=== PATIENT | male | born 1960 | race Caucasian/White ===

== ENCOUNTER → 2016-06-30 | Outpatient (CLI) | payer MEDICARE, MEDICAID ==
[~2016-06-30] MED LIST: ATORVASTATIN CA40 MG PO; CHLORTABS4 MG PO; GABAPENTIN 600600 MG PO; GABAPENTIN800 MG PO; HUMALOG KW100 UNIT/1 SQ; HUMALOG MIX75/253 ML SC; INSULIN GL100 UNITS/ SC; INSULIN GL100 UNITS1 SC; KEFLEX500 M1 PO; LISINOPRIL20 MG PO; METFORMIN HCL1000 MG PO; REGLAN10 M2 PO; SERTRALINE 50MG50 MG PO; ZOFRAN ODT4 MG PO
[2016-06-30 10:38] LABS: HEMOGLOBIN 16.1 g/dL (14.1-18.0); LYMPH # 2.1 K/mm3 (0.7-4.5); LYMPH % 23.4 % (10-50)
[2016-06-30 11:41] LABS: BUN 20 mg/dL (7-18)
[2016-06-30 11:47] LABS: GFR (ESTIMATED) 69 ML/MIN (>60)
== END ==
LOC: LAB 10:21
PROVIDERS: Surgery
DX: Z01.810 Encounter for preprocedural cardiovascular examination (principal); Z01.812 Encounter for preprocedural laboratory examination

== ENCOUNTER 2016-07-08 14:41 | Emergency (ER) | payer MEDICARE, MEDICAID ==
[~2016-07-08] VITALS: Ht 180.3 cm; Wt 108.9 kg
[~2016-07-08 14:41] MED LIST changes: -CHLORTABS4 MG PO; -GABAPENTIN800 MG PO; -HUMALOG MIX75/253 ML SC; -INSULIN GL100 UNITS/ SC; -ZOFRAN ODT4 MG PO
--- NOTE | 2016-07-08 14:53 | Emergency Room Report ---
History of Present Illness Time Seen by [id number] Presenting Problem in Triage Pt arrived:Ambulance Stretcher Presenting Problem:PULLED OVER ON THE SIDE OF THE RODE BECAUSE HE BECAME SWEATY AND NAUSEATED. PAIN IN ABDOMEN AND COLD SWEATS. STATES HE IS JUST LETHARGIC, WEAK, AND LIGHTHEADED. Onset of symptoms date/time:/ or onset unknown for:MEDICAL HX UNKNOWN Treatment Prior to Arrival: IV LINE STARTED, BLOOD DRAWN FURNACE COMBUSTION TESTER Provided by: ENVIRONMENTAL CONTROL ADMINISTRATOR Sepsis Risk Assessment: Temp: B/P: 187/89 MAP: 121 Pulse: 70 Resp: 18 Recent fever? N Clinical Suspician of Infection? N Mental Status: 1 - Regular (Normal Baseline) Sepsis Risk:Low Sepsis Risk Have you (or family members/close friends) recently traveled outside the [place]? N If Yes, where/when: Have you had exposure to infectious disease within the past month? N TB? Other? Specify: Source patient, RN notes reviewed, EMS, old records Exam Limitations no limitations Comment This is a 56-year-old male with a past medical history significant for hypertension, hyperlipidemia, diabetes mellitus, known gallbladder disease who presents to the emergency department for evaluation after sudden onset nausea and vomiting while driving just prior to arrival. Patient states that he has not had any chest pain, shortness of air and no recent illnesses including no fevers , vomiting, diarrhea. No known sick contacts. He was driving when he suddenly became very sweaty, nauseous and threw up. He states that he has known gallbladder disease and was scheduled for cholecystectomy, but became scared of the surgery so did not follow through. Just prior to his episode of diaphoresis and vomiting he ate two fillet fish sandwiches at [facility]. EMS reports normal sinus rhythm on the monitor and fingerstick 183. Patient case to feel nauseous, denies any chest pain, abdominal pain or back pain ALLERGIES Coded Allergies: diphenhydramine (From BENADRYL) (GIVES HEADACHE 11/03/15) hydroxyzine (From VISTARIL) (MAKES SHAKE 11/03/15) Home Medications Reported Medications Lisinopril 20 MG PO DAILY #30 Atorvastatin Calcium 40 MG PO QHS #30 METFORMIN HCL (Metformin 1000MG) 1,000 MG PO BID #60 INSULIN NPL/INSULIN LISPRO (Humalog Mix 75-25 Kwikpen) 6 UNITS SC BID 30 Days INSULIN GLARGINE (Lantus 3ML Solostar Pen) 50 UNITS SC DAILY Sertraline Hcl (Sertraline 50MG) 50 MG PO DAILY Chlorpheniramine Maleate (Chlortabs) 4 MG PO DAILY Gabapentin (Gabapentin 800MG) 800 MG PO QID History Medical History General CAD? No Angina: No MO: No Hypertension? Yes Hyperlipidemia? Yes CHF? No DVT? No PE? No COPD? No Asthma? No Anemia? No GERD? No Gastric ulcers? No GI Bleed? No Hernia? No Thyroid Problems? No Hypothyroidism? No CVA? No Seizures? No Diabetes? Yes Insulin Dependent: Yes Insulin Pump: No Home FSBS? Yes Renal Insuffiency? No End Stage Renal Disease? No UTI? No Stones? No BPH? No GB Disease: No Nephritic Syndrome? No Asplenia? No Hepatitis? No Sickle Cell Disease? No Arthritis? No Migraines? No Cataracts? No Glaucoma? No MRSA? No HIV? No TB? No Anxiety? No Depression? Yes Cancer? No More? No Immunization Hx Ped.Immunizations UTD Yes DT/Tetanus 1-4 Years Ago Surgical Hx Previous Surgery?N Social History Smoking Hx Smoker: Never Smoker Tobacco: No Are you/the child exposed to second-hand smoke: No Alcohol Alcohol: No Review of Systems All Other Systems Reviewed and Negative Physical Exam Vital Signs Vital Signs Date Time Temp Pulse Resp B/P Pulse O2 O2 Flow FiO2 Ox Delivery Rate 07/08 1444 70 18 187/89 98 General Appearance normal appearance, WD/WN Eye Exam - bilateral eye normal exam, bilateral eye PERRL, bilateral eye EOMI Neck normal inspection, non-tender, supple, full range of motion Respiratory Status Yes: chest symmetrical, non tender chest. No: respiratory distress. Lung Sounds bilateral: normal breath sounds, lungs clear. Cardiovascular normal exam, regular rate/rhythm, no peripheral edema, no gallop, no JVD, no murmur, no rub, normal peripheral pulses Peripheral Pulses Pulses normal Yes Gastrointestinal normal bowel sounds, normal exam, non tender Back normal inspection, no CVA tenderness, no vertebral tenderness Neurologic alert, no motor/sensory deficits, oriented x 3 Skin intact, normal color, warm/dry Medical Decision Making LABS/Meds/Orders Pt receiving controlled substance in ED? No Results/Orders Laboratory Tests 07/08/16 1440: Sodium 142, Potassium 3.8, Chloride 106, Carbon Dioxide 29, BUN 23 H, Creatinine 1.0, Estimated Creat Clear 124, Estimated GFR (MDRD) 77, Glucose 176 H, Calcium 9.1, Total Bilirubin 0.3, AST 17, ALT 32, Alkaline Phosphatase 69, Troponin I < 0.02, Total Protein 7.7, Albumin 3.9, Globulin 3.8 H, Albumin/ Globulin Ratio 1.0 L, Lipase 151, WBC 10.4, RBC 5.15, Hgb 15.5, Hct 46.3, MCV 89.9, RDW 14.1, Plt Count 221, MPV 8.7, Gran % 71.0, Gran # 7.4, Lymphocytes % 21.8, Monocytes % 4.8, Eosinophils % 1.6, Basophils % 0.7, Lymphocytes # 2.3, Monocytes # 0.5, Eosinophils # 0.2, Basophils # 0.1, PUBS MCHC 33.5, MCH 30.1 Current Medication Orders Sig/Jordan Start time Last Medication Dose Route Stop Time Status Admin Ondansetron HCl 4 MG ONCE ONE 07/08 1500 DC 07/08 IV 07/08 1501 1453 Sodium Chloride 10 ML PRN PRN 07/08 1500 AC IV 07/09 1449 Ondansetron HCl 0 .STK-MED ONE 07/08 1451 DC .ROUTE Orders Procedure Date/time Status IV SALINE LOCK 07/08 1449 Active CHEST-PORTABLE 07/08 1445 Active URINALYSIS/COMPLETE 07/08 1445 Active TROPONIN I 07/08 1445 Complete LIPASE 07/08 1445 Complete CBC WITH AUTO DIFF 07/08 1445 Complete CHEM 12 PROFILE 07/08 1445 Complete CM/EKG CM/EKG EKG rate, NSR, rhythm, no evid. of ischemic chgs, normal IA, Slightly prolonged QTC of 466 ms XRAY/CT/US XRAY/CT/US XRAY chest Xray Results normal/NAD (per my read) Departure Departure Disposition DC Home or Self Care(routine) Clinical Impression Primary Impression: Nausea & vomiting Qualifiers: Vomiting type: unspecified Vomiting Intractability: non-intractable Qualified Code: R11.2 - Nausea with vomiting, unspecified Condition STABLE Referrals Gino Rose (Family) Additional Instructions Use Zofran if needed for nausea. Follow-up with primary care provider tomorrow for reevaluation. Return to the emergency department if you develop any recurrent symptoms, chest pain, shortness of air, abdominal pain or acute onset back pain. Prescriptions Current Visit Scripts Ondansetron (Zofran 4MG Odt) 4 MG PO Q6HP PRN NAUSEA AND VOMITING #20 TAB ED Critical Care Critical Care No Comments Patient arrives with sudden onset diaphoresis, nausea, vomiting shortly after eating to fried fish sandwiches at [employer]. He denies any chest pain, abdominal pain. He is feeling better and tolerating by mouth Zofran and fluids. Electrocardiogram with no signs of acute ischemia. Initial troponin is negative. He later find out that his friend who is eating with him also became acutely ill with nausea, vomiting and diaphoresis. This constellation of symptoms makes me most suspicious for food borne illness rather than ACS, acute cholecystitis, UTI , aortic dissection. Patient remains pain-free while in the emergency department. We'll discharge home with prescription for Zofran and have him follow up with primary care provider tomorrow for reevaluation. at [phone]
[2016-07-08] MEDS ORDERED: HUMALOG MIX75/253 ML SC (14:54)
[2016-07-08] MEDS ORDERED: INSULIN GL100 UNITS/ SC (14:55)
[2016-07-08] MEDS ORDERED: SERTRALINE 50MG50 MG PO (14:56)
[2016-07-08 14:57] LABS: HEMOGLOBIN 15.5 g/dL (14.1-18.0); LYMPH # 2.3 K/mm3 (0.7-4.5); LYMPH % 21.8 % (10-50)
[2016-07-08] MEDS ORDERED: CHLORTABS4 MG PO (14:57)
[2016-07-08] MEDS ORDERED: GABAPENTIN800 MG PO (14:58)
[2016-07-08 15:08] LABS: BUN 23 mg/dL (7-18); GFR (ESTIMATED) 77 ML/MIN (>60)
[2016-07-08] MEDS ORDERED: ZOFRAN ODT4 MG PO (15:47)
[2016-07-08 15:59] VITALS: BP 164/90
--- NOTE | 2016-07-08 16:14 | RADIOLOGY REPORT PS360 ---
CHEST-PORTABLE HISTORY: N/V ORDERING PHYSICIAN: Darien Bryson MD PATIENT AGE: 56 years COMPARISON: None available FINDINGS: The cardiomediastinal silhouette and pulmonary vascularity are within normal limits. The lungs are clear without infiltrates, suspicious nodules, or pleural effusions. No acute bony abnormalities. There are 2 faint linear opacities overlying the left upper chest may be due to artifact versus foreign body. Additional opacity is noted of the left chest carbone bilaterally IMPRESSION: No acute finding
== END 2016-07-08 16:00 | disposition home or self-care (01) ==
LOC: ER 14:41
PROVIDERS: Emergency Medicine
DX: R11.2 Nausea with vomiting, unspecified (principal); I10 Essential (primary) hypertension; E11.9 Type 2 diabetes mellitus without complications; Z79.4 Long term (current) use of insulin
CPT/HCPCS: J2405

== ENCOUNTER 2017-05-10 08:57 | Emergency (ER) | payer MEDICARE, MEDICAID ==
[~2017-05-10] VITALS: Ht 180.3 cm; Wt 90.7 kg
[~2017-05-10 08:57] MED LIST changes: +CHLORTABS4 MG PO; +GABAPENTIN800 MG PO; +HUMALOG MIX75/253 ML SC; +INSULIN GL100 UNITS/ SC; +ZOFRAN ODT4 MG PO
--- OUTSIDE RECORDS SUMMARY | 2017-05-10 09:05 | External Medical Summary Rpt ---
Author Author [facility] Organization [facility] Address Unknown Phone Unavailable Care Team Providers Care Outside Sales Account Representative Name Role Phone CAITIE, (REF) PCP [phone] Encounter [facility] [id number] Date(s): 12/25/16 - 12/25/16 [facility] [address] [place] [address]- Discharge Diagnosis: Nausea and vomiting Discharge Diagnosis: Shortness of breath Discharge Disposition: OP Self Care or Home Attending Physician: BLAIR PERRY DO Admitting Physician: BLAIR PERRY DO Referring Physician: SELF, REFERRED (REF), -UNK Reason for Visit N/V/SWEATING ,DIABETIC,SHAKING Vital Signs Most recent 1 2 3 to oldest [Reference Range]: Temperature Oral Source (12/25/16 1:15 PM) Temperature Fahrenheit Mode (12/25/16 1:15 PM) Temperature, 97.5 Deg F Fahrenheit (12/25/16 1:15 PM) [96.8-99.7 Deg F] Clinical 36.4 Deg C Temperature, (12/25/16 1:15 PM) C Peripheral 75 bpm 83 bpm Pulse Rate (12/25/16 5:34 PM) (12/25/16 1:15 PM) [60-100 bpm] Heart Rate 78 bpm Monitored (12/25/16 1:30 PM) [60-100 bpm] Respiratory 18 Breaths/Min 20 Breaths/Min 28 Breaths/Min Rate [14-20 (12/25/16 5:34 PM) (12/25/16 1:30 PM) *HI* Breaths/Min] (12/25/16 1:15 PM) Blood Arm, left upper Pressure (12/25/16 1:15 PM) Location Blood Non-Invasive BP Pressure Device (12/25/16 Source 1:15 PM) Blood 148/61 mmHg 156/90 mmHg 156/90 mmHg Pressure *HI* *HI* *HI* [90-140/60-9 (12/25/16 5:34 PM) (12/25/16 1:30 PM) (12/25/16 1:15 PM) 0 mmHg] Mean 112 mmHg Arterial (12/25/16 1:30 PM) Pressure (MAP) Mean 106 Arterial (12/25/16 1:30 PM) Pressure (MAP)-BMDI Oxygen 99 % 100 % 100 % Saturation (12/25/16 5:34 PM) (12/25/16 1:30 PM) (12/25/16 1:15 PM) [94-100 %] Oxygen Room air Room air Room air Therapy Mode (12/25/16 5:34 PM) (12/25/16 1:30 PM) (12/25/16 1:15 PM) Height Stated Source (12/25/16 1:15 PM) Height Entry [place] Format (12/25/16 1:15 PM) Height/Lengt 5 ft h, POLISH (12/25/16 1:15 PM) (ft) Height/Lengt 11 Inch h POLISH (12/25/16 1:15 PM) CLINICALHEIG 180.34 cm HT (12/25/16 1:15 PM) Weight Standing scale Source, ED (12/25/16 1:15 PM) Weight Entry [place] Format (12/25/16 1:15 PM) Weight 136 lb [place] lb (12/25/16 1:15 PM) CLINICALWEIG 61.82 kg HT (12/25/16 1:15 PM) Body Surface 1.79 m2 Area (BSA) (12/25/16 1:15 PM) Body Mass 19 kg/m2 Index (BMI) (12/25/16 1:15 PM) [19.0-24.0 kg/m2] [place] Body 74.31 kg Weight (12/25/16 1:15 PM) Problem List Condition Effective Status Health Informant Dates Status Diabetes(Con Active firmed) Hypercholest Active eremia(Confi rmed) HTN Active (hypertensio n)(Confirmed ) [place] Active (myocardial infarction)( Confirmed) Allergies, Adverse Reactions, Alerts Substance Reaction Severity Status Benadryl headache Active Vistaril Shakiness Active Medications atorvastatin (atorvastatin 40 mg oral tablet) Refills: 0 gabapentin (gabapentin 800 mg oral tablet) 1 Tab, Oral, Three Times A Day, Refills: 0 insulin glargine (Lantus Solostar Pen 100 units/mL subcutaneous solution)10 Units, SubCutaneous , One Time Order, Refills: 0 insulin lispro-insulin lispro protamine (HumaLOG Mix 75/25 KwikPen subcutaneous suspension) Refills: 0 Non Formulary (LISINOPRIL 20 MG TABLET) Refills: 0 Non Formulary (METFORMIN HCL 1,000 MG TABLET) Refills: 0 ondansetron (Zofran 4 mg oral tablet) See Instructions, 1 Tab Oral Q6-8H prn N/V, Refills: 0Ordering provider: NICKOLAS YOUNG PA-GELACIO sertraline (sertraline 50 mg oral tablet) Refills: 0 Results GENERAL CHEMISTRY Most recent 1 2 to oldest [Reference Range]: Sodium Level 137 mmol/L [136-144 (12/25/16 1:47 PM) mmol/L] Potassium 4.5 mmol/L Level (12/25/16 1:47 PM) [3.7-5.0 mmol/L] Chloride 104 mmol/L Level (12/25/16 1:47 PM) [98-107 mmol/L] Carbon 26.0 mMole/Liter Dioxide (12/25/16 1:47 PM) Level [24.0-33.0 mMole/Liter] Anion Gap 7.0 [2.0-11.0] (12/25/16 1:47 PM) Glucose 239 mg/dL Level *HI* [70-110 (12/25/16 1:47 PM) mg/dL] Blood Urea 23 mg/dL Nitrogen *HI* [6-20 mg/dL] (12/25/16 1:47 PM) Creatinine 1.03 mg/dL Level (12/25/16 1:47 PM) [0.64-1.27 mg/dL] eGFR 90 mL/min/1.73m2 [>=60 (12/25/16 1:47 PM) mL/min/1.73m 2] eGFR 74 mL/min/1.73m2 NonAfrican (12/25/16 1:47 PM) [>=60 mL/min/1.73m 2] Bun/Creatini 22 ne *NA* (12/25/16 1:47 PM) Calcium 9.5 mg/dL Level (12/25/16 1:47 PM) [8.9-10.3 mg/dL] Protein 7.7 Gram/dL Total *HI* [5.9-7.5 (12/25/16 1:47 PM) Gram/dL] Albumin 4.3 Gram/dL Level (12/25/16 1:47 PM) [3.6-4.7 Gram/dL] A/G Ratio 1.3 [1.0-1.8] (12/25/16 1:47 PM) Bilirubin 0.6 mg/dL Total (12/25/16 1:47 PM) [0.4-1.3 mg/dL] Alk Phos 76 Units/Liter [34-106 (12/25/16 1:47 PM) Units/Liter] AST [12-38 21 Units/Liter Units/Liter] (12/25/16 1:47 PM) ALT [8-60 27 Units/Liter Units/Liter] (12/25/16 1:47 PM) Glucose POC2 207 mg/dL [70-110 *HI* mg/dL] (12/25/16 1:25 PM) CARDIAC SPECIFIC MARKERS Most recent 1 2 to oldest [Reference Range]: CK [25-257 82 Units/Liter 97 Units/Liter Units/Liter] (12/25/16 4:25 PM) (12/25/16 1:47 PM) Troponin I <0.02 ng/mL <0.02 ng/mL [0.00-0.03 (12/25/16 4:25 PM) (12/25/16 1:47 PM) ng/mL] CK MB 3.8 ng/mL 4.0 ng/mL [0.3-4.0 (12/25/16 4:25 PM) (12/25/16 1:47 PM) ng/mL] MBI [0.0-2.5 4.6 % 4.1 % %] *HI* *HI* (12/25/16 4:25 PM) (12/25/16 1:47 PM) HEMATOLOGY Most recent 1 2 to oldest [Reference Range]: WBC 10.2 10x3/mm3 [4.1-10.8 (12/25/16 1:47 PM) 10x3/mm3] RBC 4.75 Million/mm3 [4.37-5.74 (12/25/16 1:47 PM) Million/mm3] Hgb 14.6 Gram/dL [13.7-17.5 (12/25/16 1:47 PM) Gram/dL] Hct 42.5 % [40.1-51.0 (12/25/16 1:47 PM) %] MCV 89.4 fL [79.0-92.2 (12/25/16 1:47 PM) fL] MCH 30.7 pg [25.6-32.2 (12/25/16 1:47 PM) pg] MCHC 34.3 Gram/dL [32.3-36.5 (12/25/16 1:47 PM) Gram/dL] Platelet 203 10x3/mm3 Count (12/25/16 1:47 PM) [140-370 10x3/mm3] MPV 8.7 fL [8.7-12.0 (12/25/16 1:47 PM) fL] RDW 13.2 % [11.7-15.2 (12/25/16 1:47 PM) %] Neut % 68.6 % [34.0-69.5 (12/25/16 1:47 PM) %] Neut # 7.0 x10(3)/uL [1.7-6.0 *HI* x10(3)/uL] (12/25/16 1:47 PM) Lymph % 22.1 % [20.0-53.0 (12/25/16 1:47 PM) %] Lymph # 2.3 x10(3)/uL [0.8-3.2 (12/25/16 1:47 PM) x10(3)/uL] [place] % 6.6 % [5.0-12.5 %] (12/25/16 1:47 PM) [place] # 0.7 x10(3)/uL [0.2-1.4 (12/25/16 1:47 PM) x10(3)/uL] Eos % 1.9 % [0.7-6.0 %] (12/25/16 1:47 PM) Eos # 0.2 x10(3)/uL [0.0-0.6 (12/25/16 1:47 PM) x10(3)/uL] Baso % 0.8 % [0.0-3.0 %] (12/25/16 1:47 PM) Baso # 0.1 x10(3)/uL [0.0-0.3 (12/25/16 1:47 PM) x10(3)/uL] COAGULATION Most recent 1 2 to oldest [Reference Range]: D Dimer 0.26 mg/L FEU Quant (12/25/16 1:47 PM) [0.19-0.50 mg/L FEU] URINALYSIS Most recent 1 2 to oldest [Reference Range]: Urine Type. U CleanCatch *NA* (12/25/16 4:29 PM) Urine Color Yellow *NA* (12/25/16 4:29 PM) Urine Clear Appearance (12/25/16 4:29 PM) Urine 1.010 Specific *NA* [place] (12/25/16 4:29 PM) [1.003-1.030 ] Urine pH 6.0 Dipstick (12/25/16 4:29 PM) [5.0-8.0] Urine Negative Leukocyte (12/25/16 4:29 PM) Esterase [Negative] Urine Negative Nitrite (12/25/16 4:29 PM) [Negative] Urine 1+ Protein *ABN* Dipstick (12/25/16 4:29 PM) [Negative] Urine 3+ mg/dL Glucose *ABN* Dipstick (12/25/16 4:29 PM) [Negative mg/dL] Urine Negative Ketones (12/25/16 4:29 PM) Dipstick [Negative] Urine 1.0 EU/dL Urobilinogen (12/25/16 4:29 PM) Dipstick [0.1-1.0 EU/dL] Urine Negative Bilirubin (12/25/16 4:29 PM) Dipstick [Negative] Urine Blood Negative Dipstick (12/25/16 4:29 PM) [Negative] Ur RBC 0-2 /HPF (12/25/16 4:29 PM) Ur WBC 0-2 /HPF (12/25/16 4:29 PM) Ur Bacteria None Seen (12/25/16 4:29 PM) Ur 0-2 /HPF Epithelial (12/25/16 4:29 PM) Cells Immunizations No data available for this section Procedures Procedure Date Related Body Site Diagnosis None Social History Social History Response Type Smoking Status Never smoker; Tobacco Use Within Last Twelve Months No Assessment and Plan No data available for this section Hospital Discharge Instructions Patient EducationNausea and Vomiting, Nxad-mr-Ojuz Shortness of Breath, Wfre-ad-Cpjs
--- OUTSIDE RECORDS SUMMARY | 2017-05-10 09:05 | External Medical Summary Rpt | CCD ---
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
--- OUTSIDE RECORDS SUMMARY | 2017-05-10 09:05 | External Medical Summary Rpt | CCD ---
Author Author , MELVA FRYE Address Unknown Phone [email or web address] Purpose Continuity of Care Document - through [...]
--- OUTSIDE RECORDS SUMMARY | 2017-05-10 09:05 | External Medical Summary Rpt ---
Author Author [facility] Organization [facility] Address Unknown Phone Unavailable Care Team Providers Care Miniature Set Designer Name Role Phone CAITIE, (REF) PCP [phone] Encounter [facility] [id number] Date(s): 12/25/16 - 12/25/[address] [facility] [address] [place] [address]- Discharge Diagnosis: Nausea and vomiting Discharge Diagnosis: [...] Stated Source (12/25/16 1:15 PM) Height Entry [place] Format (12/25/16 1:15 PM) Height/Lengt 5 ft h, [place] (12/25/16 1:15 PM) (ft) Height/Lengt 11 Inch h [place] (12/25/16 1:15 PM) CLINICALHEIG 180.34 cm HT (12/25/16 1:15 PM) Weight Standing scale Source, ED (12/25/16 1:15 PM) Weight Entry [place] Format (12/25/16 1:15 PM) Weight 136 lb Italian lb (12/25/16 1:15 PM) CLINICALWEIG 61.82 kg HT (12/25/16 1:15 PM) Body Surface 1.79 m2 Area (BSA) (12/25/16 1:15 PM) Body Mass 19 kg/m2 Index (BMI) (12/25/16 1:15 PM) [19.0-24.0 kg/m2] [place] Body 74.31 kg Weight (12/25/16 1:15 PM) Problem List Condition Effective Status Health Informant Dates Status Diabetes(Con Active firmed) Hypercholest Active eremia(Confi rmed) HTN Active (hypertensio n)(Confirmed ) [place] Active (myocardial infarction)( Confirmed) Allergies, Adverse Reactions, [...] 2.3 x10(3)/uL [0.8-3.2 (12/25/16 1:47 PM) x10(3)/uL] [place] % 6.6 % [5.0-12.5 %] (12/25/16 1:47 PM) [place] # 0.7 x10(3)/uL [0.2-1.4 (12/25/16 1:47 PM) [...] (12/25/16 4:29 PM) Urine 1.010 Specific *NA* [place] (12/25/16 4:29 PM) [1.003-1.030 ] Urine pH [...] Hospital Discharge Instructions Patient EducationNausea and Vomiting, Eobi-sb-Pjbt Shortness of Breath, Cyfi-ny-Oouv
--- OUTSIDE RECORDS SUMMARY | 2017-05-10 09:06 | External Medical Summary Rpt | CCD ---
Author Author [facility] Organization [facility] Address Unknown Phone Unavailable Purpose Continuity of Care Document - through 2016
--- OUTSIDE RECORDS SUMMARY | 2017-05-10 09:06 | External Medical Summary Rpt | CCD ---
Author Author , MELVA FRYE Address Unknown Phone [email or web address] ([email or web address] Immunization Name Date Rout CVX Reac Dose Comm Prov Is Faci e tion ent ider Refu lity Give sed n Infl 09-2 0.5 Hist GSHA No GSHA uenz 9-20 mL oric NE NE a 17 al Quad Info rmat W/Pr ion es - Sour ce Unsp ecif ied PPV2 10-3 Intr 33 999 Hist H137 No H137 3 0-20 amus oric 14 cula al r Info rmat ion - Sour ce Unsp ecif ied
--- OUTSIDE RECORDS SUMMARY | 2017-05-10 09:06 | External Medical Summary Rpt ---
Author Author [employer], [employer] Organization [employer] Address Unknown Phone Unavailable
--- OUTSIDE RECORDS SUMMARY | 2017-05-10 09:06 | External Medical Summary Rpt | CCD ---
Author Author , MELVA FRYE Address Unknown Phone [email or web address] Immunization Name Date Rout CVX Reac Dose [...]
--- NOTE | 2017-05-10 09:45 | [facility]gent [facility] Report ---
History of Present Issue Date/Time Seen by Provider 05/10/17 0944 Visit Reason Pt arrived:Walked Presenting Problem:PT C/O DRAINAGE AND HEAD CONGESTION FEELS LIKE SINUS INFECTION Location if Accident: Onset of symptoms date/time:/ or onset unknown for:MEDICAL HX UNKNOWN Have you (or family members/close friends) recently traveled outside the [place]? N If Yes, where/when: Have you had exposure to infectious disease within the past month? TB? Other? Specify: c/o increase in PND and sneezing x 2-3 days. Worried it might be a sinus infection. Gary pain or fevers. Hasn't taken or tried anything other than typical daily antihistamine. No known sick contacts. Source patient Exam Limitations no limitations ALLERGIES Coded Allergies: diphenhydramine (From BENADRYL) (GIVES HEADACHE 11/03/15) hydroxyzine (From VISTARIL) (MAKES SHAKE 11/03/15) Home Medications Active Scripts Ondansetron (Zofran 4MG Odt) 4 MG PO Q6HP PRN NAUSEA AND VOMITING #20 TAB Prov: 07/08/16 Reported Medications Lisinopril 20 MG PO DAILY #30 Atorvastatin Calcium 40 MG PO QHS #30 METFORMIN HCL (Metformin 1000MG) 1,000 MG PO BID #60 INSULIN NPL/INSULIN LISPRO (Humalog Mix 75-25 Kwikpen) 6 UNITS SC BID 30 Days INSULIN GLARGINE (Lantus 3ML Solostar Pen) 50 UNITS SC DAILY Sertraline Hcl (Sertraline 50MG) 50 MG PO DAILY Chlorpheniramine Maleate (Chlortabs) 4 MG PO DAILY Gabapentin (Gabapentin 800MG) 800 MG PO QID History Medical History General CAD? No Angina: No [place]: No Hypertension? Yes Hyperlipidemia? Yes CHF? No DVT? No PE? No COPD? No Asthma? No Anemia? No GERD? No Gastric ulcers? No GI Bleed? No Hernia? No Thyroid Problems? No Hypothyroidism? No CVA? No Seizures? No Diabetes? Yes Insulin Dependent: Yes Insulin Pump: No Home FSBS? Yes Renal Insuffiency? No UTI? No Stones? No BPH? No GB Disease: No Nephritic Syndrome? No Asplenia? No Hepatitis? No Sickle Cell Disease? No Arthritis? Yes Migraines? No Cataracts? No Glaucoma? No MRSA? No HIV? No TB? No Anxiety? No Depression? Yes Cancer? No More? No Immunization HX DT/Tetanus 1-4 Years Ago Flu Refused Pneumonia Refuses Surgical Hx Previous Surgery?N Family History Family HX Diabetes Yes CAD No Hypertension Yes Hyperlipidemia Yes Cancer No TB No Social History Smoking Hx Smoker: Never Smoker Tobacco: No Alcohol Alcohol: No Review of Systems All Other Systems Reviewed and Negative Constitutional see HPI, denies fever, denies malaise, denies weakness Eyes denies drainage ENT see HPI, nose discharge (thin, clear, minimal). denies: ear pain, ear discharge , nose congestion, throat pain, other (sinus pain, ). Respiratory denies cough Gastrointestinal denies no symptoms reported Musculoskeletal denies joint pain Skin denies rash Psychiatric/Neurological denies headache Physical Exam Vital Signs Vital Signs Date Time Temp Pulse Resp B/P Pulse O2 O2 Flow FiO2 Ox Delivery Rate 05/10 0919 97.8 86 18 149/70 97 General Appearance normal appearance, no apparent distress Ear, Nose, Throat normal ENT inspection (x/ sneezing frequently) Neck non-tender, supple Respiratory Status No: respiratory distress, productive cough, non productive cough. Lung Sounds anterior: lungs clear. posterior: lungs clear. bilateral: lungs clear. Cardiovascular regular rate/rhythm, no peripheral edema, no rub Neurologic alert, oriented x 3 Mental status normal mood/affect Lymphatic no adenopathy Medical Decision Making LABS/Meds/Orders Pt receiving controlled substance in ED? No Departure Departure Time of Disposition 0951 Disposition DC Home or Self Care(routine) Clinical Impression Primary Impression: Allergic rhinitis Qualifiers: Chronicity: unspecified Allergic rhinitis trigger: unspecified Allergic rhinitis seasonality: unspecified seasonality Qualified Code: J30.9 - Allergic rhinitis, unspecified Condition STABLE Referrals Gino Rose APRN (Family) Keep your follow up appointment you already have scheduled for next week. Follow up immediately for new or worsening symptoms Patient Instructions DI for Allergic Rhinitis Additional Instructions * No sign of bacterial infection. Sounds like you allergies are worse right now or you could have possibly picked up a mild virus. * Monitor Temp. Follow up if fevers develop * Encourage fluids, water, gatorade, powerade, pedialyte if /toddler/child * warm salt water gargles * warm fluids * sore throat lozenges * sleep elevated * humidifier/vaporizer * Start flonase 2 sprays each nostril daily but may take 2-3 days to notice improvement with this * Continue your daily allergy medication Discharge Counseling Counseled pt/family regarding diagnosis, medications/RX, home care, follow up needs Prescriptions Current Visit Scripts Fluticasone Propionate (Flonase 50 Mcg Nasal [place]) 2 SPRAY NA DAILY #1 BOT at 0944
[2017-05-10] MEDS ORDERED: FLONASE 50 MCG16 GM (09:55)
[2017-05-10 09:56] VITALS: BP 149/70
[2017-05-20] MEDS ORDERED: ZITHROMAX 250M250 MG PO (07:00)
[2017-05-20] MEDS ORDERED: TESSALON PERLE100 MG PO (07:51)
== END 2017-05-10 09:57 | disposition home or self-care (01) ==
LOC: UTC 08:57
DX: J30.9 Allergic rhinitis, unspecified (principal); I10 Essential (primary) hypertension; E11.9 Type 2 diabetes mellitus without complications; Z79.4 Long term (current) use of insulin; E78.5 Hyperlipidemia, unspecified